=== PATIENT | female | born 1940 | race Caucasian/White ===

== ENCOUNTER 2021-04-10 08:26 | Inpatient (IN) | payer OTHER ==
[~2021-04-10] VITALS: Ht 177.8 cm; Wt 111.9 kg
[2021-04-10] MEDS ORDERED: SODIUM CHLORIDE 0.9% 1,000 ML IV ONE ×3 (09:00→14:15)
[2021-04-10 09:47] LABS: Albumin 2.8 g/dL (3.4-5.0); Anion Gap 9 (5-15); Blood Urea Nitrogen 15 mg/dL (7-18); Calcium 8.4 mg/dL (8.5-10.1); Carbon Dioxide 22 mmol/L (21-32); Chloride 100 mmol/L (98-107); Glucose 169 mg/dL (74-106); Potassium 3.6 mmol/L (3.5-5.1); Sodium 131 mmol/L (136-145)
[2021-04-10 09:55] LABS: Alanine Aminotransferase 17 U/L (13-56); Alkaline Phosphatase 97 U/L (45-117); Aspartate Aminotransferase 23 U/L (15-37); BUN/Creatinine Ratio 15.2; Bilirubin, Total 1.3 mg/dL (0.2-1.0); GFR African American 70 mL/min; GFR Non-African American 58 mL/min; Total Protein 7.4 g/dL (6.4-8.2)
[2021-04-10 11:20] LABS: Hemoglobin 13.9 g/dL (12.2-16.2); White Blood Cell 25.1 10^3/uL (4.4-10.8)
[2021-04-10 11:22] LABS: Hematocrit 41.1 % (36.0-46.0); Mean Corpuscular Hemoglobin 33.2 pg (28.0-32.0); Mean Corpuscular Hgb Conc. 33.8 g/dL (32.0-36.0); Mean Corpuscular Volume 98.2 fL (80.0-100.0); Red Blood Cells 4.18 10^6/uL (4.0-5.20); Red Cell Distribution Width 12.9 % (11.8-14.3)
[2021-04-10 12:07] LABS: Basophils % (manual) 0 (0.0-2.0); Blast Cells 0; Eosinophils % (manual) 0 (0-7); Metamyelocytes % 0; Myelocytes % 0; Promyelocytes % 0; Reactive Lymphocytes 0
[2021-04-10 12:33] LABS: Band Neutrophils % (manual) 7; Lymphocytes % (manual) 16 (10.0-50.0); Monocytes % (manual) 5 (0-12)
[2021-04-10 12:48] LABS: Urine Bacteria MANY /hpf (None Seen); Urine Blood 3+ /uL (Negative); Urine Mucus FEW (None Seen); Urine Specific Gravity 1.016 (1.001-1.035); Urine WBC 486 /hpf (0 - 5); Urine WBC Clumps PRESENT /hpf (None Seen)
[2021-04-10] MEDS ORDERED: cefTRIAXone 1GM/50ML D5W 50 ML IV ONE (13:00)
[2021-04-10] MEDS ORDERED: ACETAMINOPHEN 325 MG TAB PO ONE (13:45)
[2021-04-10] MEDS ORDERED: PIPERACILLIN-TAZOB 3.375GM 100 ML IV ONE ×2 (14:30→15:00)
[2021-04-10] MEDS ORDERED: NITROGLYCERIN 0.4 MG SL TAB SL PRN (18:30)
[2021-04-10] MEDS ORDERED: MORPHINE SULFATE INJECTION 2 MG/ML SYRG IV PRN (18:30)
[2021-04-10] MEDS ORDERED: ATENOLOL 25 MG TAB PO ONE (18:45)
[2021-04-10] MEDS ORDERED: ONDANSETRON HCL 4 MG/2 ML VIAL IV ONE (18:45)
[2021-04-10] MEDS ORDERED: ATORVASTATIN 20 MG TAB PO ONE (18:45)
[2021-04-10] MEDS ORDERED: CITALOPRAM HYDROBR 20 MG TAB PO ONE (18:45)
[2021-04-10] MEDS ORDERED: LEVOTHYROXINE SODIUM 100 MCG/5 ML INJ IV ONE (18:45)
[2021-04-10] MEDS ORDERED: HYDROcodone-ACET 5/325MG TAB PO ONE (18:51)
[2021-04-10 19:17] LABS: Calcium 8.1 mg/dL (8.5-10.1); Potassium 3.5 mmol/L (3.5-5.1)
[2021-04-10 21:05] LABS: Basophils # (auto) 0.1 10 ^3/uL (0-0.2); Eosinophils # (auto) 0 10 ^3/uL (0-0.8); Hemoglobin 14.5 g/dL (12.2-16.2); Lymphocytes # (auto) 3.1 10 ^3/uL (0.4-5.4); Nucleated Red Blood Cells % 0.1 %; Red Cell Distribution Width 13.1 % (11.8-14.3)
[2021-04-10 21:07] LABS: Basophils % (auto) 0.3 % (0.0-2.0); Hematocrit 41.4 % (36.0-46.0); Lymphocytes % (auto) 12.9 % (10.0-50.0); Mean Corpuscular Hemoglobin 34.7 pg (28.0-32.0); Mean Corpuscular Volume 99.2 fL (80.0-100.0); Monocytes # (auto) 1.5 10 ^3/uL (0-1.3); Monocytes % (auto) 6.4 % (0.0-12.0); Neutrophils # (auto) 18.9 10 ^3/uL (1.6-8.6); Neutrophils % (auto) 80.4 % (37.0-80.0); Red Blood Cells 4.18 10^6/uL (4.0-5.20); White Blood Cell 23.6 10^3/uL (4.4-10.8)
[2021-04-10] MEDS ORDERED: HYDROcodone-ACET 5/325MG TAB PO PRN (21:15)
[2021-04-10 21:17] LABS: Calcium 8.5 mg/dL (8.5-10.1); Potassium 3.7 mmol/L (3.5-5.1)
[2021-04-10 21:21] LABS: BUN/Creatinine Ratio 14.1; Bilirubin, Total 1.3 mg/dL (0.2-1.0); Total Protein 8.2 g/dL (6.4-8.2)
[2021-04-10] MEDS ORDERED: EZET-10 PO (21:39)
[2021-04-10] MEDS ORDERED: ONDANSETRON HCL 4 MG/2 ML VIAL IV PRN (22:00)
[2021-04-10] MEDS: ATORVASTATIN 20 MG TAB PO SCH (22:00)
[2021-04-10 22:18] LABS: INR 1.25 (0.9-1.15); Partial Thromboplastin Time 28.9 sec (23.0-31.2)
[2021-04-10] MEDS: ATENOLOL 25 MG TAB PO SCH (23:36)
[2021-04-10] MEDS: ACETAMINOPHEN 325 MG TAB PO PRN (23:37)
[2021-04-11] MEDS: PIPERACILLIN-TAZOB 3.375GM 100 ML IV SCH ×2 (00:41→05:58)
[2021-04-11] MEDS ORDERED: LEVO125T7 PO (03:26)
[2021-04-11] MEDS ORDERED: MULT-733 PO (03:26)
[2021-04-11] MEDS ORDERED: EZET10TA22 PO (03:26)
[2021-04-11] MEDS ORDERED: ELTR25PA PO (03:26)
[2021-04-11] MEDS ORDERED: ATEN-60 PO (03:26)
[2021-04-11] MEDS ORDERED: DIPH25CA66 PO (03:26)
[2021-04-11] MEDS ORDERED: COEN50CA PO (03:26)
[2021-04-11] MEDS ORDERED: BIOT5TAB3 PO (03:26)
[2021-04-11] MEDS ORDERED: CITA-77 PO (03:26)
[2021-04-11 05:00] VITALS: BP 120/50
[2021-04-11] MEDS: LEVOTHYROXINE SODIUM 50 MCG TAB PO SCH (06:39)
[2021-04-11 06:46] LABS: Basophils # (auto) 0.1 10 ^3/uL (0-0.2); Eosinophils # (auto) 0 10 ^3/uL (0-0.8); Eosinophils % (auto) 0.1 % (0.0-7.0); Monocytes # (auto) 1.6 10 ^3/uL (0-1.3)
[2021-04-11 06:48] LABS: Basophils % (auto) 0.3 % (0.0-2.0); Hematocrit 39.4 % (36.0-46.0); Hemoglobin 13.7 g/dL (12.2-16.2); Lymphocytes % (auto) 13.2 % (10.0-50.0); Mean Corpuscular Hemoglobin 34.5 pg (28.0-32.0); Mean Corpuscular Hgb Conc. 34.9 g/dL (32.0-36.0); Monocytes % (auto) 7.1 % (0.0-12.0); Neutrophils # (auto) 18.2 10 ^3/uL (1.6-8.6); Neutrophils % (auto) 79.3 % (37.0-80.0); Nucleated Red Blood Cells % 0.1 %; Red Blood Cells 3.98 10^6/uL (4.0-5.20); Red Cell Distribution Width 13.3 % (11.8-14.3); White Blood Cell 22.9 10^3/uL (4.4-10.8)
[2021-04-11] MEDS: ACETAMINOPHEN 325 MG TAB PO PRN (07:50)
[2021-04-11 09:00] VITALS: BP 124/65
[2021-04-11] MEDS: CITALOPRAM HYDROBR 20 MG TAB PO SCH (11:21)
[2021-04-11 12:44] VITALS: BP 126/48
[2021-04-11] MEDS: methylPREDNISolone SOD SUCC 125 MG/2 ML VL IV SCH ×2 (14:08→21:59)
[2021-04-11] MEDS: MEROPENEM 1GM IVPB 100 ML IV SCH (14:08)
[2021-04-11 16:47] VITALS: BP 144/63
[2021-04-11 20:00] VITALS: BP 137/71
[2021-04-11 22:00] VITALS: BP 137/71
[2021-04-11] MEDS: ATORVASTATIN 20 MG TAB PO SCH (22:00)
[2021-04-11] MEDS: ATENOLOL 25 MG TAB PO SCH (22:00)
[2021-04-12] MEDS: MEROPENEM 1GM IVPB 100 ML IV SCH ×2 (01:32→14:06)
[2021-04-12 05:00] VITALS: BP 117/51
[2021-04-12] MEDS: methylPREDNISolone SOD SUCC 125 MG/2 ML VL IV SCH ×3 (05:49→21:34)
[2021-04-12] MEDS: LEVOTHYROXINE SODIUM 50 MCG TAB PO SCH (06:15)
[2021-04-12 06:41] LABS: Basophils # (auto) 0 10 ^3/uL (0-0.2); Basophils % (auto) 0.1 % (0.0-2.0); Eosinophils # (auto) 0 10 ^3/uL (0-0.8); Monocytes # (auto) 0.5 10 ^3/uL (0-1.3); Red Blood Cells 3.79 10^6/uL (4.0-5.20)
[2021-04-12 06:44] LABS: Hematocrit 37.2 % (36.0-46.0); Lymphocytes # (auto) 2.4 10 ^3/uL (0.4-5.4); Lymphocytes % (auto) 15.4 % (10.0-50.0); Mean Corpuscular Hemoglobin 34.2 pg (28.0-32.0); Mean Corpuscular Hgb Conc. 34.9 g/dL (32.0-36.0); Monocytes % (auto) 3.5 % (0.0-12.0); Neutrophils # (auto) 12.6 10 ^3/uL (1.6-8.6); Nucleated Red Blood Cells % 0.1 %; Red Cell Distribution Width 12.7 % (11.8-14.3); White Blood Cell 15.6 10^3/uL (4.4-10.8)
[2021-04-12 09:00] VITALS: BP 115/77
[2021-04-12] MEDS: CITALOPRAM HYDROBR 20 MG TAB PO SCH (09:04)
[2021-04-12 12:52] VITALS: BP 115/68
[2021-04-12 17:00] VITALS: BP 119/50
[2021-04-12] MEDS: ATORVASTATIN 20 MG TAB PO SCH (21:35)
[2021-04-12] MEDS: ATENOLOL 25 MG TAB PO SCH (21:42)
[2021-04-12 22:00] VITALS: BP 124/54
[2021-04-13] MEDS: MEROPENEM 1GM IVPB 100 ML IV SCH ×2 (02:17→14:00)
[2021-04-13 05:00] VITALS: BP 113/55
[2021-04-13 05:05] LABS: Basophils # (auto) 0 10 ^3/uL (0-0.2); Eosinophils # (auto) 0 10 ^3/uL (0-0.8); Hemoglobin 12.9 g/dL (12.2-16.2); Neutrophils # (auto) 19.3 10 ^3/uL (1.6-8.6); Nucleated Red Blood Cells % 0.1 %
[2021-04-13 05:08] LABS: Basophils % (auto) 0.1 % (0.0-2.0); Eosinophils % (auto) 0.2 % (0.0-7.0); Hematocrit 38.2 % (36.0-46.0); Lymphocytes # (auto) 3.2 10 ^3/uL (0.4-5.4); Lymphocytes % (auto) 13.9 % (10.0-50.0); Mean Corpuscular Hemoglobin 33.5 pg (28.0-32.0); Mean Corpuscular Hgb Conc. 33.7 g/dL (32.0-36.0); Mean Corpuscular Volume 99.1 fL (80.0-100.0); Monocytes # (auto) 0.8 10 ^3/uL (0-1.3); Monocytes % (auto) 3.3 % (0.0-12.0); Neutrophils % (auto) 82.5 % (37.0-80.0); Red Blood Cells 3.85 10^6/uL (4.0-5.20); White Blood Cell 23.3 10^3/uL (4.4-10.8)
[2021-04-13] MEDS: LEVOTHYROXINE SODIUM 50 MCG TAB PO SCH (06:17)
[2021-04-13] MEDS: methylPREDNISolone SOD SUCC 125 MG/2 ML VL IV SCH ×2 (06:17→14:00)
[2021-04-13 09:00] VITALS: BP 130/59
[2021-04-13] MEDS: CITALOPRAM HYDROBR 20 MG TAB PO SCH (10:55)
[2021-04-13 13:00] VITALS: BP 134/62
[2021-04-13 14:38] LABS: Basophils # (auto) 0 10 ^3/uL (0-0.2); Basophils % (auto) 0.2 % (0.0-2.0); Eosinophils # (auto) 0 10 ^3/uL (0-0.8); Hematocrit 39.4 % (36.0-46.0); Hemoglobin 13.4 g/dL (12.2-16.2); Lymphocytes # (auto) 2.8 10 ^3/uL (0.4-5.4); Lymphocytes % (auto) 13.5 % (10.0-50.0); Mean Corpuscular Hemoglobin 33.6 pg (28.0-32.0); Mean Corpuscular Hgb Conc. 34.1 g/dL (32.0-36.0); Mean Corpuscular Volume 98.6 fL (80.0-100.0); Monocytes # (auto) 0.6 10 ^3/uL (0-1.3); Monocytes % (auto) 3.1 % (0.0-12.0); Neutrophils % (auto) 83.2 % (37.0-80.0); Nucleated Red Blood Cells % 0.1 %; Red Blood Cells 3.99 10^6/uL (4.0-5.20); Red Cell Distribution Width 13.2 % (11.8-14.3); White Blood Cell 20.4 10^3/uL (4.4-10.8)
[2021-04-13] MEDS ORDERED: PRED20TA2 PO (14:38)
[2021-04-13 16:00] VITALS: BP 134/62
[2021-04-13 17:00] VITALS: BP 128/67
[2021-04-13 18:00] VITALS: BP 128/67
[2021-05-12] MEDS ORDERED: FURO1TAB33 PO (18:58)
[2021-05-12] MEDS ORDERED: LISI-716 PO (18:58)
== END 2021-04-13 19:00 | disposition home health service (06) | DRG 872 ==
LOC: ER 08:26 → EDBD 08:26 → TELE 18:19 → TELE-WESTW 22:20
PROVIDERS: ADMIT Internal Medicine; ATTEND Internal Medicine
PROC: 05HC33Z Insertion of Infusion Device into Left Basilic Vein, Percutaneous Approach (ICD-10-PCS; principal; 2021-04-12)
PROC: B54NZZA Ultrasonography of Left Upper Extremity Veins, Guidance (ICD-10-PCS; 2021-04-12)
DX: A41.9 Sepsis, unspecified organism (principal); E87.1 Hypo-osmolality and hyponatremia; D69.3 Immune thrombocytopenic purpura; N12 Tubulo-interstitial nephritis, not specified as acute or chronic; Z16.12 Extended spectrum beta lactamase (ESBL) resistance; I10 Essential (primary) hypertension; E03.9 Hypothyroidism, unspecified; E78.5 Hyperlipidemia, unspecified; E11.9 Type 2 diabetes mellitus without complications; F32.9 Major depressive disorder, single episode, unspecified; F41.9 Anxiety disorder, unspecified; Z20.822 Contact with and (suspected) exposure to COVID-19; B96.20 Unspecified Escherichia coli [E. coli] as the cause of diseases classified elsewhere; N20.0 Calculus of kidney; Z80.0 Family history of malignant neoplasm of digestive organs; Z82.49 Family history of ischemic heart disease and other diseases of the circulatory system; Z86.2 Personal history of diseases of the blood and blood-forming organs and certain disorders involving the immune mechanism; Z90.710 Acquired absence of both cervix and uterus; Z90.81 Acquired absence of spleen
CPT/HCPCS: 36415; 70450; 71045; 74176; 80048; 80053; 81001; 83615; 84484; 85007; 85025; 85027; 85384; 85610; 85730; 87040; 87077; 87086; 87186; 87426; 93005; 96361; 96365; 97110; 97116; 97163; 97530; G0378; J0696; J2185; J2543

== ENCOUNTER 2021-07-23 09:14 | Emergency (ER) | payer OTHER ==
[~2021-07-23] VITALS: Ht 172.7 cm; Wt 104.3 kg
[~2021-07-23 09:14] MED LIST: ATEN-60 PO; BIOT5TAB3 PO; CITA-77 PO; COEN50CA PO; DIPH25CA66 PO; ELTR25PA PO; EZET10TA22 PO; FURO1TAB33 PO; LEVO125T7 PO; LISI-716 PO; MULT-733 PO; PRED20TA2 PO
[2021-07-23 09:36] VITALS: BP 140/78
[2021-07-23] MEDS ORDERED: SODIUM CHLORIDE 0.9% 1,000 ML IV ONE ×2 (11:30)
[2021-07-23 12:28] LABS: Basophils # (auto) 0.1 10 ^3/uL (0-0.2); Basophils % (auto) 0.8 % (0.0-2.0); Eosinophils # (auto) 0.3 10 ^3/uL (0-0.8); Lymphocytes # (auto) 3.1 10 ^3/uL (0.4-5.4); Monocytes # (auto) 0.7 10 ^3/uL (0-1.3)
[2021-07-23 12:30] LABS: Eosinophils % (auto) 2.1 % (0.0-7.0); Hematocrit 43.7 % (36.0-46.0); Hemoglobin 15.2 g/dL (12.2-16.2); Lymphocytes % (auto) 25.6 % (10.0-50.0); Mean Corpuscular Hemoglobin 34.3 pg (28.0-32.0); Mean Corpuscular Hgb Conc. 34.7 g/dL (32.0-36.0); Mean Corpuscular Volume 98.8 fL (80.0-100.0); Monocytes % (auto) 5.6 % (0.0-12.0); Neutrophils # (auto) 7.9 10 ^3/uL (1.6-8.6); Neutrophils % (auto) 65.9 % (37.0-80.0); Nucleated Red Blood Cells % 0.2 %; Red Blood Cells 4.42 10^6/uL (4.0-5.20); Red Cell Distribution Width 13.2 % (11.8-14.3)
[2021-07-23 12:43] LABS: Alanine Aminotransferase 18 U/L (13-56); Albumin 3.2 g/dL (3.4-5.0); Anion Gap 7 (5-15); Blood Urea Nitrogen 9 mg/dL (7-18); Calcium 9.2 mg/dL (8.5-10.1); Carbon Dioxide 25 mmol/L (21-32); Chloride 106 mmol/L (98-107); Glucose 120 mg/dL (74-106); Potassium 3.3 mmol/L (3.5-5.1); Sodium 138 mmol/L (136-145)
[2021-07-23 12:48] LABS: Alkaline Phosphatase 104 U/L (45-117); Aspartate Aminotransferase 23 U/L (15-37); BUN/Creatinine Ratio 9.2; Bilirubin, Total 0.8 mg/dL (0.2-1.0); GFR African American 71 mL/min; GFR Non-African American 58 mL/min; Total Protein 8.2 g/dL (6.4-8.2)
[2021-07-23 15:42] LABS: Urine Bacteria FEW /hpf (None Seen); Urine Blood Negative /uL (Negative); Urine Hyaline Cast FEW /lpf (0 - 2); Urine Mucus FEW (None Seen); Urine Specific Gravity 1.019 (1.001-1.035); Urine WBC 10 /hpf (0 - 5)
== END 2021-07-23 15:52 | disposition home or self-care (01) ==
LOC: EDBD 09:14 → ER 09:14
DX: N20.0 Calculus of kidney (principal); N39.0 Urinary tract infection, site not specified; E78.5 Hyperlipidemia, unspecified; Z90.710 Acquired absence of both cervix and uterus; Z86.73 Personal history of transient ischemic attack (TIA), and cerebral infarction without residual deficits; Z88.2 Allergy status to sulfonamides
CPT/HCPCS: 36415; 74176; 80053; 81001; 84484; 85025

== ENCOUNTER 2022-08-21 06:42 | Emergency (ER) | payer OTHER ==
[~2022-08-21] VITALS: Ht 172.7 cm; Wt 105.0 kg
[2022-08-21] MEDS ORDERED: SODIUM CHLORIDE 0.9% 1,000 ML IV ONE (08:00)
[2022-08-21 08:07] LABS: Urine Bacteria FEW /hpf (None Seen); Urine Blood Negative /uL (Negative); Urine Specific Gravity 1.006 (1.001-1.035); Urine WBC 208 /hpf (0 - 5); Urine WBC Clumps PRESENT /hpf (None Seen)
[2022-08-21 09:10] LABS: Albumin 3.2 g/dL (3.4-5.0); Basophils # (auto) 0.1 10 ^3/uL (0-0.2); Eosinophils # (auto) 0.2 10 ^3/uL (0-0.8); Eosinophils % (auto) 2.8 % (0.0-7.0); Hematocrit 42.5 % (36.0-46.0); Hemoglobin 14.1 g/dL (12.2-16.2); Lymphocytes # (auto) 2.7 10 ^3/uL (0.4-5.4); Lymphocytes % (auto) 38.6 % (10.0-50.0); Mean Corpuscular Hemoglobin 32.8 pg (28.0-32.0); Mean Corpuscular Hgb Conc. 33.3 g/dL (32.0-36.0); Mean Corpuscular Volume 98.6 fL (80.0-100.0); Monocytes # (auto) 0.7 10 ^3/uL (0-1.3); Monocytes % (auto) 9.3 % (0.0-12.0); Neutrophils # (auto) 3.4 10 ^3/uL (1.6-8.6); Neutrophils % (auto) 48.3 % (37.0-80.0); Nucleated Red Blood Cells % 0.1 %; Potassium 3.9 mmol/L (3.5-5.1); Red Blood Cells 4.31 10^6/uL (4.0-5.20); Red Cell Distribution Width 12.8 % (11.8-14.3)
[2022-08-21 09:18] LABS: BUN/Creatinine Ratio 14.3; Bilirubin, Total 0.8 mg/dL (0.2-1.0); Magnesium 2.2 mg/dL (1.6-2.6); Total Protein 7.1 g/dL (6.4-8.2)
[2022-08-21] MEDS ORDERED: CIPR-173 PO (13:08)
[2022-08-21] MEDS ORDERED: cefTRIAXone 1GM/50ML D5W 50 ML IV ONE (13:15)
[2022-08-21 13:49] VITALS: BP 136/54
== END 2022-08-21 14:38 | disposition home or self-care (01) ==
LOC: EDBD 06:42 → ER 06:42
DX: R53.1 Weakness (principal); N39.0 Urinary tract infection, site not specified; E43 Unspecified severe protein-calorie malnutrition; I13.0 Hypertensive heart and chronic kidney disease with heart failure and stage 1 through stage 4 chronic kidney disease, or unspecified chronic kidney disease; N18.30 Chronic kidney disease, stage 3 unspecified; I50.9 Heart failure, unspecified; E78.5 Hyperlipidemia, unspecified; E03.9 Hypothyroidism, unspecified; Z68.35 Body mass index [BMI] 35.0-35.9, adult; Z86.73 Personal history of transient ischemic attack (TIA), and cerebral infarction without residual deficits; Z90.710 Acquired absence of both cervix and uterus; Z90.89 Acquired absence of other organs
CPT/HCPCS: 36415; 71046; 80053; 81001; 83735; 84443; 84484; 85025; 85652; 93005; 96361; 96365; 99285; J0696; J7030

== ENCOUNTER 2022-10-19 16:09 | Inpatient (IN) | payer OTHER ==
[~2022-10-19] VITALS: Ht 172.7 cm; Wt 96.1 kg
[~2022-10-19 16:09] MED LIST changes: +CIPR-173 PO
[2022-10-19] MEDS ORDERED: SODIUM CHLORIDE 0.9% 250 ML IV ONE (17:30)
[2022-10-19] MEDS ORDERED: ALBUTEROL SULF 2.5 MG/0.5ML(0.5%) NEB SOLN NEB ONE (17:45)
[2022-10-19 18:22] LABS: Hemoglobin 14.9 g/dL (12.2-16.2); White Blood Cell 5.4 10^3/uL (4.4-10.8)
[2022-10-19 18:25] LABS: Hematocrit 44.7 % (36.0-46.0); Mean Corpuscular Hemoglobin 32.8 pg (28.0-32.0); Mean Corpuscular Hgb Conc. 33.3 g/dL (32.0-36.0); Mean Corpuscular Volume 98.4 fL (80.0-100.0); Red Blood Cells 4.54 10^6/uL (4.0-5.20); Red Cell Distribution Width 12.7 % (11.8-14.3)
[2022-10-19 18:35] LABS: Band Neutrophils % (manual) 0; Basophils % (manual) 0 (0.0-2.0); Blast Cells 0; Eosinophils % (manual) 0 (0-7); Metamyelocytes % 0; Myelocytes % 0; Promyelocytes % 0; Reactive Lymphocytes 0
[2022-10-19 18:38] LABS: INR 1.14 (0.9-1.15); Partial Thromboplastin Time 29.3 sec (24.6-33.4)
[2022-10-19 18:45] LABS: Albumin 2.9 g/dL (3.4-5.0); Calcium 8.1 mg/dL (8.5-10.1); Potassium 3.7 mmol/L (3.5-5.1)
[2022-10-19 18:47] LABS: Bilirubin, Total 0.7 mg/dL (0.2-1.0); Total Protein 6.7 g/dL (6.4-8.2)
[2022-10-19 19:06] LABS: Lymphocytes % (manual) 52 (10.0-50.0); Monocytes % (manual) 13 (0-12)
[2022-10-19] MEDS ORDERED: levoFLOXacin 500MG 100 ML IV ONE (20:30)
[2022-10-19] MEDS ORDERED: ONDANSETRON HCL 4 MG/2 ML VIAL IV PRN (22:15)
[2022-10-19] MEDS ORDERED: DOCUSATE SOD 100 MG CAP PO PRN (22:15)
[2022-10-19] MEDS ORDERED: ALBUMIN 25% 100 ML IV ONE (22:15)
[2022-10-19] MEDS ORDERED: ACETAMINOPHEN 325 MG TAB PO PRN (22:15)
[2022-10-19] MEDS ORDERED: HYDROcodone-ACET 5/325MG TAB PO PRN (22:15)
[2022-10-19] MEDS ORDERED: NITROGLYCERIN 0.4 MG SL TAB SL PRN (23:15)
[2022-10-19] MEDS ORDERED: MORPHINE SULFATE INJ 2 MG/ml SYRG IV PRN (23:15)
[2022-10-19 23:43] VITALS: BP 102/49
[2022-10-20 03:27] LABS: Urine Bacteria MANY /hpf (None Seen); Urine Blood Negative /uL (Negative); Urine Hyaline Cast FEW /lpf (0 - 2); Urine Mucus FEW (None Seen); Urine Specific Gravity 1.017 (1.001-1.035); Urine WBC 34 /hpf (0 - 5)
[2022-10-20] MEDS: SODIUM CHLOR 0.9% PF (SALINE LOCK) 10ML VIAL/SYR IV SCH ×3 (06:00→22:00)
[2022-10-20 06:46] LABS: Hematocrit 39.5 % (36.0-46.0); Hemoglobin 13.1 g/dL (12.2-16.2); Mean Corpuscular Hemoglobin 32.7 pg (28.0-32.0); Mean Corpuscular Hgb Conc. 33.3 g/dL (32.0-36.0); Mean Corpuscular Volume 98.4 fL (80.0-100.0); Red Blood Cells 4.01 10^6/uL (4.0-5.20); Red Cell Distribution Width 12.6 % (11.8-14.3)
[2022-10-20 06:50] LABS: Calcium 8.3 mg/dL (8.5-10.1); Potassium 3.8 mmol/L (3.5-5.1)
[2022-10-20 06:53] LABS: BUN/Creatinine Ratio 12.7
[2022-10-20 06:55] LABS: Bilirubin, Total 0.9 mg/dL (0.2-1.0); Total Protein 6.2 g/dL (6.4-8.2)
[2022-10-20 07:11] LABS: Basophils % (manual) 0 (0.0-2.0); Blast Cells 0; Eosinophils % (manual) 0 (0-7); Metamyelocytes % 0; Myelocytes % 0; Promyelocytes % 0; Reactive Lymphocytes 0
[2022-10-20 08:56] LABS: Band Neutrophils % (manual) 5; Lymphocytes % (manual) 49 (10.0-50.0); Monocytes % (manual) 17 (0-12)
[2022-10-20] MEDS: AZITHROMYCIN 500MG/ 250ML 250 ML IV SCH (09:56)
[2022-10-20] MEDS: LEVOTHYROXINE SODIUM 50 MCG TAB PO SCH (09:56)
[2022-10-20] MEDS: FAMOTIDINE (10MG/ML) 2ML VL IV SCH ×2 (09:56→22:00)
[2022-10-20] MEDS: ALBUTEROL SULF 2.5 MG/0.5ML(0.5%) NEB SOLN NEB PRN ×2 (10:27→18:29)
[2022-10-20] MEDS: IPRATROPIUM BROM 0.5 MG/2.5ML INH SOL NEB PRN ×2 (10:27→18:29)
[2022-10-20] MEDS: IPRATROPIUM BROM 0.5 MG/2.5ML INH SOL NEB SCH (23:16)
[2022-10-20] MEDS: ALBUTEROL SULF 2.5 MG/0.5ML(0.5%) NEB SOLN NEB SCH (23:16)
[2022-10-21] MEDS: IPRATROPIUM BROM 0.5 MG/2.5ML INH SOL NEB SCH ×4 (05:53→22:16)
[2022-10-21] MEDS: ALBUTEROL SULF 2.5 MG/0.5ML(0.5%) NEB SOLN NEB SCH ×4 (05:54→22:15)
[2022-10-21] MEDS: SODIUM CHLOR 0.9% PF (SALINE LOCK) 10ML VIAL/SYR IV SCH ×3 (07:08→22:08)
[2022-10-21] MEDS: LEVOTHYROXINE SODIUM 50 MCG TAB PO SCH (08:21)
[2022-10-21] MEDS: AZITHROMYCIN 500MG/ 250ML 250 ML IV SCH (10:19)
[2022-10-21 15:11] VITALS: BP 120/52
[2022-10-21 22:00] VITALS: BP 118/43
[2022-10-22 05:00] VITALS: BP 103/50
[2022-10-22] MEDS: IPRATROPIUM BROM 0.5 MG/2.5ML INH SOL NEB SCH ×5 (06:23→22:11)
[2022-10-22] MEDS: ALBUTEROL SULF 2.5 MG/0.5ML(0.5%) NEB SOLN NEB SCH ×5 (06:23→22:11)
[2022-10-22] MEDS: LEVOTHYROXINE SODIUM 50 MCG TAB PO SCH (06:27)
[2022-10-22] MEDS: SODIUM CHLOR 0.9% PF (SALINE LOCK) 10ML VIAL/SYR IV SCH ×3 (06:28→22:21)
[2022-10-22 09:00] VITALS: BP 102/48
[2022-10-22] MEDS: AZITHROMYCIN 500MG/ 250ML 250 ML IV SCH (09:51)
[2022-10-22 13:00] VITALS: BP_SYST 96; BP_SYST 98; BP_DIAS 46; BP_DIAS 51
[2022-10-22 19:29] VITALS: BP 110/58
[2022-10-22 22:00] VITALS: BP 116/52
[2022-10-22 22:42] VITALS: BP 110/58
[2022-10-23 05:00] VITALS: BP 116/59
[2022-10-23] MEDS: SODIUM CHLOR 0.9% PF (SALINE LOCK) 10ML VIAL/SYR IV SCH ×3 (06:00→22:00)
[2022-10-23] MEDS: ALBUTEROL SULF 2.5 MG/0.5ML(0.5%) NEB SOLN NEB SCH ×5 (06:18→23:24)
[2022-10-23] MEDS: IPRATROPIUM BROM 0.5 MG/2.5ML INH SOL NEB SCH ×5 (06:18→23:24)
[2022-10-23] MEDS: LEVOTHYROXINE SODIUM 50 MCG TAB PO SCH (06:37)
[2022-10-23 09:00] VITALS: BP 108/48
[2022-10-23] MEDS: AZITHROMYCIN 500MG/ 250ML 250 ML IV SCH (09:47)
[2022-10-23 13:00] VITALS: BP 110/51
[2022-10-23 17:00] VITALS: BP 110/44
[2022-10-23] MEDS ORDERED: IOHEXOL 350 MG/ML 100ML IJ ONE (18:20)
[2022-10-23 22:00] VITALS: BP 104/58
[2022-10-24 05:35] VITALS: BP 128/55
[2022-10-24] MEDS: SODIUM CHLOR 0.9% PF (SALINE LOCK) 10ML VIAL/SYR IV SCH ×3 (06:09→22:00)
[2022-10-24] MEDS: ALBUTEROL SULF 2.5 MG/0.5ML(0.5%) NEB SOLN NEB SCH ×5 (06:09→22:22)
[2022-10-24] MEDS: IPRATROPIUM BROM 0.5 MG/2.5ML INH SOL NEB SCH ×5 (06:09→22:22)
[2022-10-24] MEDS: LEVOTHYROXINE SODIUM 50 MCG TAB PO SCH (06:31)
[2022-10-24 09:01] VITALS: BP 123/47
[2022-10-24] MEDS: AZITHROMYCIN 500MG/ 250ML 250 ML IV SCH (09:46)
[2022-10-24] MEDS ORDERED: CEFTRIAXONE SODIUM 2 GM in D5W 5% 50 ML IV ONE (10:30)
[2022-10-24 10:36] LABS: Basophils # (auto) 0.1 10 ^3/uL (0-0.2); Basophils % (auto) 0.8 % (0.0-2.0); Eosinophils # (auto) 0.2 10 ^3/uL (0-0.8); Eosinophils % (auto) 2.3 % (0.0-7.0); Hematocrit 38.8 % (36.0-46.0); Hemoglobin 13.4 g/dL (12.2-16.2); Lymphocytes # (auto) 2.1 10 ^3/uL (0.4-5.4); Lymphocytes % (auto) 29.8 % (10.0-50.0); Mean Corpuscular Hemoglobin 33.8 pg (28.0-32.0); Mean Corpuscular Hgb Conc. 34.4 g/dL (32.0-36.0); Mean Corpuscular Volume 98.3 fL (80.0-100.0); Monocytes # (auto) 0.7 10 ^3/uL (0-1.3); Monocytes % (auto) 9.1 % (0.0-12.0); Neutrophils # (auto) 4.2 10 ^3/uL (1.6-8.6); Nucleated Red Blood Cells % 0.3 %; Red Blood Cells 3.95 10^6/uL (4.0-5.20); Red Cell Distribution Width 12.5 % (11.8-14.3); White Blood Cell 7.2 10^3/uL (4.4-10.8)
[2022-10-24 11:04] LABS: BUN/Creatinine Ratio 12.9; Potassium 4.1 mmol/L (3.5-5.1)
[2022-10-24 13:00] VITALS: BP 120/61
[2022-10-24 17:00] VITALS: BP 107/60
[2022-10-24 22:00] VITALS: BP 111/53
[2022-10-25 05:00] VITALS: BP 97/43
[2022-10-25] MEDS: LEVOTHYROXINE SODIUM 50 MCG TAB PO SCH (06:33)
[2022-10-25] MEDS: SODIUM CHLOR 0.9% PF (SALINE LOCK) 10ML VIAL/SYR IV SCH ×2 (06:36→14:27)
[2022-10-25] MEDS: ALBUTEROL SULF 2.5 MG/0.5ML(0.5%) NEB SOLN NEB SCH ×3 (06:40→14:12)
[2022-10-25] MEDS: IPRATROPIUM BROM 0.5 MG/2.5ML INH SOL NEB SCH ×3 (06:40→14:12)
[2022-10-25 09:00] VITALS: BP 99/54
[2022-10-25] MEDS ORDERED: cefTRIAXone 1GM/50ML D5W 50 ML IV SCH ×2 (09:00)
[2022-10-25] MEDS ORDERED: AZITHROMYCIN 250 MG TAB PO SCH (10:00)
[2022-10-25 12:43] VITALS: BP 123/58
[2022-10-25] MEDS ORDERED: AZIT250T9 PO (13:14)
[2022-10-25] MEDS ORDERED: CEPH-510 PO (13:14)
== END 2022-10-25 18:00 | disposition home health service (06) | DRG 193 ==
LOC: ER 16:09 → EDBD 16:09 → TELE 23:06 → TELE-E-ADS 10-21 14:39 → TELE-EAST 10-21 18:31
PROVIDERS: ADMIT Nurse Practitioner Family; ATTEND Internal Medicine
DX: J18.9 Pneumonia, unspecified organism (principal); J96.01 Acute respiratory failure with hypoxia; E03.9 Hypothyroidism, unspecified; D69.6 Thrombocytopenia, unspecified; E78.5 Hyperlipidemia, unspecified; E88.09 Other disorders of plasma-protein metabolism, not elsewhere classified; I11.0 Hypertensive heart disease with heart failure; I50.9 Heart failure, unspecified; Z20.822 Contact with and (suspected) exposure to COVID-19; Z88.2 Allergy status to sulfonamides; Z82.49 Family history of ischemic heart disease and other diseases of the circulatory system; Z86.73 Personal history of transient ischemic attack (TIA), and cerebral infarction without residual deficits; Z90.710 Acquired absence of both cervix and uterus; Z90.81 Acquired absence of spleen
CPT/HCPCS: 36415; 71045; 71275; 80048; 80053; 81001; 83880; 84443; 84484; 85007; 85025; 85027; 85379; 85610; 85730; 87040; 87426; 87804; 93005; 93306; 94640; 96361; 96365; 97163; 99291; G0378; J0696; J1956; J3490; J7060; P9047

== ENCOUNTER 2023-04-09 15:00 | Inpatient (IN) | payer OTHER ==
[~2023-04-09] VITALS: Ht 160 cm; Wt 94.5 kg
[~2023-04-09 15:00] MED LIST changes: +AZIT250T9 PO; +CEPH-510 PO; -CIPR-173 PO
[2023-04-09 17:22] LABS: Basophils # (auto) 0 10 ^3/uL (0-0.2); Basophils % (auto) 0.3 % (0.0-2.0); Eosinophils # (auto) 0.2 10 ^3/uL (0-0.8); Lymphocytes # (auto) 5.3 10 ^3/uL (0.4-5.4); Lymphocytes % (auto) 52.8 % (10.0-50.0); Monocytes # (auto) 0.8 10 ^3/uL (0-1.3); Monocytes % (auto) 8.1 % (0.0-12.0); Neutrophils # (auto) 3.7 10 ^3/uL (1.6-8.6); Neutrophils % (auto) 36.8 % (37.0-80.0); Red Blood Cells 3.79 10^6/uL (4.0-5.20)
[2023-04-09 17:23] LABS: Hematocrit 39.7 % (36.0-46.0); Hemoglobin 13.5 g/dL (12.2-16.2); Mean Corpuscular Hemoglobin 35.6 pg (28.0-32.0); Mean Corpuscular Hgb Conc. 34.1 g/dL (32.0-36.0); Mean Corpuscular Volume 104.6 fL (80.0-100.0); Red Cell Distribution Width 16.2 % (11.8-14.3)
[2023-04-09 17:24] LABS: Albumin 3.2 g/dL (3.4-5.0); Calcium 9.1 mg/dL (8.5-10.1); Potassium 4.2 mmol/L (3.5-5.1)
[2023-04-09 17:27] LABS: BUN/Creatinine Ratio 18.4 (10.0-20.0); Bilirubin, Total 0.4 mg/dL (0.2-1.0)
[2023-04-09] MEDS ORDERED: ACETAMINOPHEN 325 MG TAB PO PRN (20:45)
[2023-04-09] MEDS ORDERED: ONDANSETRON HCL 4 MG/2 ML VIAL IV PRN (20:45)
[2023-04-09] MEDS: methylPREDNISolone SOD SUCC 125 MG/2 ML VL IV SCH (22:49)
[2023-04-10] VITALS (7 sets, daily range): BP systolic 107–128; BP diastolic 43–73
[2023-04-10] MEDS ORDERED: LEVO100T8 PO (01:38)
[2023-04-10] MEDS ORDERED: LISI20TA28 PO (01:40)
[2023-04-10] MEDS ORDERED: FURO20TA3 PO (01:40)
[2023-04-10] MEDS ORDERED: POTA10TA51 PO (01:40)
[2023-04-10] MEDS ORDERED: ZINC30TA6 PO (01:48)
[2023-04-10] MEDS ORDERED: BACI1CAP5 PO (01:48)
[2023-04-10] MEDS ORDERED: CHOL25CH3 PO (01:48)
[2023-04-10] MEDS ORDERED: PRED10TA PO (01:50)
[2023-04-10] MEDS ORDERED: LORA0.5T20 PO (01:50)
[2023-04-10] MEDS: methylPREDNISolone SOD SUCC 125 MG/2 ML VL IV SCH ×3 (05:15→22:04)
[2023-04-10 05:47] LABS: Basophils # (auto) 0 10 ^3/uL (0-0.2); Eosinophils # (auto) 0 10 ^3/uL (0-0.8); Monocytes # (auto) 0 10 ^3/uL (0-1.3); Nucleated Red Blood Cells % 0.1 %
[2023-04-10 05:50] LABS: Calcium 8.9 mg/dL (8.5-10.1); Hematocrit 38.9 % (36.0-46.0); Hemoglobin 13.3 g/dL (12.2-16.2); Lymphocytes # (auto) 1.4 10 ^3/uL (0.4-5.4); Lymphocytes % (auto) 20.1 % (10.0-50.0); Mean Corpuscular Hemoglobin 35.7 pg (28.0-32.0); Mean Corpuscular Hgb Conc. 34.2 g/dL (32.0-36.0); Mean Corpuscular Volume 104.5 fL (80.0-100.0); Monocytes % (auto) 0.7 % (0.0-12.0); Neutrophils # (auto) 5.3 10 ^3/uL (1.6-8.6); Neutrophils % (auto) 79.2 % (37.0-80.0); Potassium 4.1 mmol/L (3.5-5.1); Red Blood Cells 3.72 10^6/uL (4.0-5.20); Red Cell Distribution Width 16.3 % (11.8-14.3); White Blood Cell 6.7 10^3/uL (4.4-10.8)
[2023-04-10 05:53] LABS: BUN/Creatinine Ratio 29.2 (10.0-20.0)
[2023-04-10] MEDS: LEVOTHYROXINE SODIUM 100 MCG TAB PO SCH (06:09)
[2023-04-10] MEDS: LISINOPRIL 20 MG TAB PO SCH (09:44)
[2023-04-10] MEDS: ATENOLOL 50 MG TAB PO SCH (09:46)
[2023-04-10] MEDS: PANTOPRAZOLE 40 MG TAB PO SCH (09:47)
[2023-04-10] MEDS: FUROSEMIDE 20 MG TAB PO SCH (09:47)
[2023-04-11 05:00] VITALS: BP 103/49
[2023-04-11 05:37] LABS: Basophils # (auto) 0 10 ^3/uL (0-0.2); Eosinophils # (auto) 0 10 ^3/uL (0-0.8); Monocytes # (auto) 0.5 10 ^3/uL (0-1.3); White Blood Cell 18.6 10^3/uL (4.4-10.8)
[2023-04-11] MEDS: methylPREDNISolone SOD SUCC 125 MG/2 ML VL IV SCH ×2 (05:37→14:38)
[2023-04-11 05:41] LABS: Basophils % (auto) 0.1 % (0.0-2.0); Hematocrit 38.6 % (36.0-46.0); Lymphocytes # (auto) 1.9 10 ^3/uL (0.4-5.4); Lymphocytes % (auto) 10.1 % (10.0-50.0); Mean Corpuscular Hemoglobin 35.2 pg (28.0-32.0); Mean Corpuscular Hgb Conc. 33.6 g/dL (32.0-36.0); Mean Corpuscular Volume 104.8 fL (80.0-100.0); Monocytes % (auto) 2.8 % (0.0-12.0); Neutrophils # (auto) 16.2 10 ^3/uL (1.6-8.6); Nucleated Red Blood Cells % 0.1 %; Red Blood Cells 3.68 10^6/uL (4.0-5.20); Red Cell Distribution Width 16.5 % (11.8-14.3)
[2023-04-11] MEDS: LEVOTHYROXINE SODIUM 100 MCG TAB PO SCH (06:52)
[2023-04-11 08:00] VITALS: BP 128/56
[2023-04-11 09:00] VITALS: BP 112/44
[2023-04-11] MEDS: ATENOLOL 50 MG TAB PO SCH (09:58)
[2023-04-11] MEDS: LISINOPRIL 20 MG TAB PO SCH (09:59)
[2023-04-11] MEDS: PANTOPRAZOLE 40 MG TAB PO SCH (10:00)
[2023-04-11] MEDS: FUROSEMIDE 20 MG TAB PO SCH (10:02)
[2023-04-11 13:00] VITALS: BP 114/44
[2023-04-11] MEDS ORDERED: PRED20TA2 PO (14:11)
[2023-04-11] MEDS ORDERED: OMEP20TA PO (14:11)
[2023-04-11 17:00] VITALS: BP 112/41
== END 2023-04-11 19:10 | disposition home or self-care (01) | DRG 813 ==
LOC: ER 15:00 → OVERFLOW 20:48 → CENTRAL 23:29
PROVIDERS: ADMIT Nurse Practitioner; ATTEND Hospitalist
DX: D69.3 Immune thrombocytopenic purpura (principal); E44.0 Moderate protein-calorie malnutrition; N17.9 Acute kidney failure, unspecified; I13.0 Hypertensive heart and chronic kidney disease with heart failure and stage 1 through stage 4 chronic kidney disease, or unspecified chronic kidney disease; K74.60 Unspecified cirrhosis of liver; E78.5 Hyperlipidemia, unspecified; E89.0 Postprocedural hypothyroidism; I50.9 Heart failure, unspecified; F32.A Depression, unspecified; E11.22 Type 2 diabetes mellitus with diabetic chronic kidney disease; N18.9 Chronic kidney disease, unspecified; Z86.2 Personal history of diseases of the blood and blood-forming organs and certain disorders involving the immune mechanism; Z86.73 Personal history of transient ischemic attack (TIA), and cerebral infarction without residual deficits; Z90.81 Acquired absence of spleen; Z88.2 Allergy status to sulfonamides; Z90.710 Acquired absence of both cervix and uterus; Z82.49 Family history of ischemic heart disease and other diseases of the circulatory system; Z80.0 Family history of malignant neoplasm of digestive organs; Z68.36 Body mass index [BMI] 36.0-36.9, adult
CPT/HCPCS: 36415; 71045; 80048; 80053; 83880; 84484; 85025; 86850; 86900; 86901; 93005; G0378